=== PATIENT | male | born 1955 | race Caucasian/White ===

== ENCOUNTER → 2018-01-14 | Outpatient (CLI) | payer OTHER | LOC: CIMAGING 09:02 | PROVIDERS: ATTEND Family Medicine | DX: R10.11 Right upper quadrant pain (principal); R94.8 Abnormal results of function studies of other organs and systems; K76.89 Other specified diseases of liver | CPT/HCPCS: 76700-PO ==

== ENCOUNTER 2018-01-16 09:44 | Observation (INO) | payer OTHER ==
[2018-01-16] MEDS ORDERED: ONDANSETRON 4 MG/2 ML VIAL IVP ONE (10:10)
[2018-01-16] MEDS ORDERED: NS 1,000 ML IV ONE (10:10)
--- NOTE | 2018-01-16 10:20 | EDPHY ---
H & P Time Seen by Provider: 01/16/18 09:52 HPI/ROS: CHIEF COMPLAINT: Abdominal pain HISTORY OF PRESENT ILLNESS: Pain for more than 1 less than 2 weeks, worsening today. Recent normal urinalysis, lipase 500, ultrasound performed. Pain is on the right side. Does not radiate. Associated with nausea and not really any change with eating or drinking. No urinary symptoms or fever. Symptoms were mild today as moderate comes to the ER for further evaluation. Plan by the primary care physician Dr. Mushtaq caputo was for CT scanning. REVIEW OF SYSTEMS: Eye: no change in vision ENT: no sore throat Cardiac: no chest pain or syncope Pulmonary: no cough or SOB Abdomen: HPI Musculoskeletal: no back pain Skin: no rash Neuro: no headache Constitutional: no fever : no urinary symptoms A comprehensive 10 point review of systems is otherwise negative aside from elements mentioned in the history of present illness. PAST MEDICAL HISTORY: Negative, no previous abdominal surgeries Social history: No alcohol General Appearance: Alert and conversant, cooperative. Eyes: No scleral icterus. ENT, Mouth: Normal mucous membranes. Respiratory: Normal respiratory effort, breath sounds equal, lungs are clear to auscultation. Cardiovascular: Regular rate and rhythm. Gastrointestinal: Right-sided abdominal tenderness but no Zhou sign and no definite McBurney's point tenderness. Bowel sounds present. Neurological: Alert, face symmetric, normal motor and sensory in extremities. Skin: Warm and dry, no rashes. Musculoskeletal: No peripheral edema. Psychiatric: Not agitated. Emergency Department course/MDM: Plan for repeat labs to include lipase, CT scanning. Zofran 4 mg IV for nausea 1046: Lipase greater than 1200, no gallstones on ultrasound. Admission to hospitalist service. 1134: negative CT except for liver cysts. No CT evidence of pancreatitis. Smoking Status: Never smoked Constitutional: Initial Vital Signs Temperature (C) 36.5 C 01/16/18 09:46 Heart Rate 75 01/16/18 09:46 Respiratory Rate 18 01/16/18 09:46 Blood Pressure 140/81 H 01/16/18 09:46 O2 Sat (%) 96 01/16/18 09:46 O2 Delivery Mode Room Air Allergies/Adverse Reactions: No Known Allergies Allergy (Verified 01/16/18 11:05) Home Medications: Medication Instructions Recorded Acetaminophen [Tylenol 325mg (*)] 325 mg PO DAILY PRN 01/16/18 Atorvastatin Calcium [Lipitor 10 10 mg PO DAILY 01/16/18 mg (*)] Cholecalciferol Vit D3 [Vitamin D3 1,000 units PO DAILY 01/16/18 (*)] Herbals/Supplements -Info Only 1 ea PO DAILY 01/16/18 [place]-3 Fatty Acids [Fish Oil 1000 1,000 mg PO DAILY 01/16/18 mg (*)] Timolol 0.5% [TIMOPTIC 0.5% (*)] 1 drops EACHEYE DAILY 01/16/18 Medical Decision Making Consult/Admit Bed Type: [facility] c[facility] - Data Points Laboratory Results: Laboratory Results 01/16/18 10:10 01/16/18 10:10 01/16/18 01/16/18 01/16/18 10:17 10:10 10:10 WBC 6.32 10^3/uL 10^3/uL (3.80-9.50) RBC 5.38 10^6/uL 10^6/uL (4.40-6.38) Hgb 16.9 g/dL g/dL (13.7-17.5) POC Hgb 17.3 gm/dL gm/dL (13.7-17.5) Hct 50.3 % % (40.0-51.0) POC Hct 51 % % (40-51) MCV 93.5 fL fL (81.5-99.8) MCH 31.4 pg pg (27.9-34.1) MCHC 33.6 g/dL g/dL (32.4-36.7) RDW 12.1 % % (11.5-15.2) Plt Count 215 10^3/uL 10^3/uL (150-400) MPV 9.9 fL fL (8.7-11.7) Neut % (Auto) 63.6 % % (39.3-74.2) Lymph % (Auto) 27.2 % % (15.0-45.0) [place] % (Auto) 7.3 % % (4.5-13.0) Eos % (Auto) 1.3 % % (0.6-7.6) Baso % (Auto) 0.3 % % (0.3-1.7) Nucleat RBC Rel Count 0.0 % % (0.0-0.2) Absolute Neuts (auto) 4.02 10^3/uL 10^3/uL (1.70-6.50) Absolute Lymphs (auto) 1.72 10^3/uL 10^3/uL (1.00-3.00) Absolute Monos (auto) 0.46 10^3/uL 10^3/uL (0.30-0.80) Absolute Eos (auto) 0.08 10^3/uL 10^3/uL (0.03-0.40) Absolute Basos (auto) 0.02 10^3/uL 10^3/uL (0.02-0.10) Absolute Nucleated RBC 0.00 10^3/uL 10^3/uL (0-0.01) Immature Gran % 0.3 % % (0.0-1.1) Immature Gran # 0.02 10^3/uL 10^3/uL (0.00-0.10) POC Sodium 144 mEq/L mEq/L (135-145) Sodium 141 mEq/L mEq/L (135-145) POC Potassium 4.1 mEq/L mEq/L (3.3-5.0) Potassium 4.3 mEq/L mEq/L (3.3-5.0) POC Chloride 105 mEq/L mEq/L (97-110) Chloride 106 mEq/L mEq/L (97-110) Carbon Dioxide 28 mEq/l mEq/l (22-31) Anion Gap 7 mEq/L mEq/L (6-14) POC BUN 12 mg/dL mg/dL (7-23) BUN 13 mg/dL mg/dL (7-23) Creatinine 0.8 mg/dL mg/dL (0.7-1.3) POC Creatinine 0.8 mg/dL mg/dL (0.7-1.3) Estimated GFR > 60 Glucose 102 mg/dL H mg/dL (70-100) POC Glucose 104 mg/dL H mg/dL (70-100) Calcium 9.3 mg/dL mg/dL (8.5-10.4) Total Bilirubin 1.0 mg/dL mg/dL (0.1-1.4) Conjugated Bilirubin 0.1 mg/dL mg/dL (0.0-0.5) Unconjugated Bilirubin 0.9 mg/dL mg/dL (0.0-1.1) AST 27 IU/L IU/L (17-59) ALT 32 IU/L IU/L (21-72) Alkaline Phosphatase 73 IU/L IU/L (38-126) Total Protein 7.1 g/dL g/dL (6.3-8.2) Albumin 4.2 g/dL g/dL (3.5-5.0) Lipase 1254 IU/L H IU/L (23-300) Medications Given: Discontinued Medications Sodium Chloride (Ns) 1,000 mls @ 0 mls/hr IV EDNOW ONE; Wide Open PRN Reason: Protocol Stop: 01/16/18 10:11 Last Admin: 01/16/18 10:19 Dose: 1,000 mls Ondansetron HCl (Zofran) 4 mg IVP EDNOW ONE Stop: 01/16/18 10:11 Last Admin: 01/16/18 10:19 Dose: 4 mg Point of Care Test Results: Chemistry 01/16/18 10:17 POC Sodium 144 mEq/L mEq/L (135-145) POC Potassium 4.1 mEq/L mEq/L (3.3-5.0) POC Chloride 105 mEq/L mEq/L (97-110) POC BUN 12 mg/dL mg/dL (7-23) POC Creatinine 0.8 mg/dL mg/dL (0.7-1.3) POC Glucose 104 mg/dL H mg/dL (70-100) ISTAT H&H 01/16/18 10:17 POC Hgb 17.3 gm/dL gm/dL (13.7-17.5) POC Hct 51 % % (40-51) Departure - Departure Disposition: [facility] Inpatient Acute Clinical Impression: Pancreatitis, acute Condition: Good
[2018-01-16 10:24] LABS: PLATELET COUNT 215 10^3/uL (150-400)
[2018-01-16] MEDS ORDERED: IOPAMIDOL (ISOVUE-300) 100 ML BTL ONE (10:57)
[2018-01-16] MEDS ORDERED: ONDANSETRON 4 MG/2 ML VIAL IVP PRN (11:29)
[2018-01-16] MEDS ORDERED: NS W/ 20 KCl/L 1,000 ML IV SCH (11:30)
[2018-01-16] MEDS ORDERED: oxyCODONE IR 5 MG TAB PO PRN (13:08)
[2018-01-16] MEDS ORDERED: HYDROmorphONE/DILAUDID 1 MG/ML INJ IVP PRN (13:08)
[2018-01-16] MEDS ORDERED: NS 1,000 ML IV SCH (13:15)
--- NOTE | 2018-01-16 14:04 | PDGENHP ---
History and Physical - Chief Complaint RUQ pain, nausea - History of Present Illness 62 y/o male c/o RUQ pain and nausea for the past 2 weeks. He increased the amount of weight lifting exercises and he initially thought the abdominal pain was more musculoskeletal. Denies diarrhea, vomiting, dysuria, alcohol abuse, fevers, chills. RUQ pain is 5/[address] Abdomen w/ contrast: No acute process in the abdomen and pelvis - no evidence of acute pancreatitis. Incidental hepatic cysts and moderate-sized left hydrocele. Past Medical/Surgical History 1. Tonsillectomy 2. Vasectomy () 3. Low levels of HDL Vital Signs: 128/68 68 HR 18 Respirations 94% RA 36.5C Temp History Information - Allergies/Home Medication List Allergies/Adverse Reactions: No Known Allergies Allergy (Verified 01/16/18 11:05) Home Medications: Acetaminophen [Tylenol 325mg (*)] 325 mg PO DAILY PRN 01/16/18 [Last Taken Unknown] Atorvastatin Calcium [Lipitor 10 mg (*)] 10 mg PO DAILY 01/16/18 [Last Taken ] Cholecalciferol Vit D3 [Vitamin D3 (*)] 1,000 units PO DAILY 01/16/18 [Last Taken Unknown] Herbals/Supplements -Info Only 1 ea PO DAILY 01/16/18 [Last Taken Unknown] [place]-3 Fatty Acids [Fish Oil 1000 mg (*)] 1,000 mg PO DAILY 01/16/18 [Last Taken Unknown] Timolol 0.5% [TIMOPTIC 0.5% (*)] 1 drops EACHEYE DAILY 01/16/18 [Last Taken ] I have personally reviewed and updated: family history, medical history, social history, surgical history Past Medical History: See HPI list - Surgical History Additional surgical history: See HPI list - Family History Additional family history: Mother-cholecystectomy - Social History Smoking Status: Never smoked Alcohol Use: Rarely (Only on special occasions (holidays)) Drug Use: None Additional social history: Lives in [place] with his spouse Leilani. Review of Systems Review of Systems: ROS: 10pt was reviewed & negative except for what was stated in HPI & below Constitutional: Reports: malaise EENMT: Reports: no symptoms Cardiac: Reports: no symptoms Respiratory: Reports: no symptoms Gastrointestinal: Reports: abdominal pain (RUQ), nausea Genitourinary: Reports: no symptoms Muscolosketal: Reports: no symptoms Skin: Reports: no symptoms Neurological: Reports: no symptoms Hematologic/Lymphatic: Reports: no symptoms Immunologic/Allergy: Reports: no symptoms Physical Exam Physical Exam: Lab data and imaging reviewed CT Abdomen w/ contrast: No acute process in the abdomen and pelvis - no evidence of acute pancreatitis. Incidental hepatic cysts and moderate-sized left hydrocele. Abdomen US (01/14/18): Normal appearance of the gallbladder with no evidence of cholelithiasis, cholecystitis or bile duct dilatation. Visualizing the pancreas suboptimal and recommended for CT w/contrast if suspicious of acute pancreatitis. Lipase (01/14/18): 500 Lipase: 1254 Temp Pulse Resp BP Pulse Ox 36.5 C 76 14 128/75 H 95 01/16/18 09:46 01/16/18 13:49 01/16/18 13:49 01/16/18 13:49 01/16/18 13:49 Constitutional: no apparent distress, appears nourished, other (He does not appear to be in a great deal of pain. He reports the pain and nausea is tolerable right now. He is able to converse in a calm, pleasant manner.) Eyes: PERRL, anicteric sclera, EOMI Ears, Nose, Mouth, Throat: moist mucous membranes, hearing normal, ears appear normal, no oral mucosal ulcers Cardiovascular: regular rate and rhythym, no murmur, rub, or gallop, No edema Peripheral Pulses: 2+: dorsalis-pedis (R) (Radial 2+), dorsalis-pedis (L) ( Radial 2+) Respiratory: no respiratory distress, no rales or rhonchi, clear to auscultation Gastrointestinal: normoactive bowel sounds, no palpable masses, tenderness Genitourinary: no bladder fullness, no bladder tenderness Skin: warm, normal color, no rashes or abrasions, no fluctuance, no induration, No mottled Musculoskeletal: full muscle strength, no muscle tenderness, normal joint ROM, no joint effusions Neurologic: AAOx3, sensation intact bilaterally, CN II-XII Intact Psychiatric: interacting appropriately, not anxious, not encephalopathic, thought process linear Lymph, Heme, Immunologic: no cervical LAD, no supraclavicular LAD Lab Data & Imaging Review 01/16/18 10:10 01/16/18 10:10 WBC 6.32 10^3/uL (3.80-9.50) 01/16/18 10:10 RBC 5.38 10^6/uL (4.40-6.38) 01/16/18 10:10 Hgb 16.9 g/dL (13.7-17.5) 01/16/18 10:10 POC Hgb 17.3 gm/dL (13.7-17.5) 01/16/18 10:17 Hct 50.3 % (40.0-51.0) 01/16/18 10:10 POC Hct 51 % (40-51) 01/16/18 10:17 MCV 93.5 fL (81.5-99.8) 01/16/18 10:10 MCH 31.4 pg (27.9-34.1) 01/16/18 10:10 MCHC 33.6 g/dL (32.4-36.7) 01/16/18 10:10 RDW 12.1 % (11.5-15.2) 01/16/18 10:10 Plt Count 215 10^3/uL (150-400) 01/16/18 10:10 MPV 9.9 fL (8.7-11.7) 01/16/18 10:10 Neut % (Auto) 63.6 % (39.3-74.2) 01/16/18 10:10 Lymph % (Auto) 27.2 % (15.0-45.0) 01/16/18 10:10 [place] % (Auto) 7.3 % (4.5-13.0) 01/16/18 10:10 Eos % (Auto) 1.3 % (0.6-7.6) 01/16/18 10:10 Baso % (Auto) 0.3 % (0.3-1.7) 01/16/18 10:10 Nucleat RBC Rel Count 0.0 % (0.0-0.2) 01/16/18 10:10 Absolute Neuts (auto) 4.02 10^3/uL (1.70-6.50) 01/16/18 10:10 Absolute Lymphs (auto) 1.72 10^3/uL (1.00-3.00) 01/16/18 10:10 Absolute Monos (auto) 0.46 10^3/uL (0.30-0.80) 01/16/18 10:10 Absolute Eos (auto) 0.08 10^3/uL (0.03-0.40) 01/16/18 10:10 Absolute Basos (auto) 0.02 10^3/uL (0.02-0.10) 01/16/18 10:10 Absolute Nucleated RBC 0.00 10^3/uL (0-0.01) 01/16/18 10:10 Immature Gran % 0.3 % (0.0-1.1) 01/16/18 10:10 Immature Gran # 0.02 10^3/uL (0.00-0.10) 01/16/18 10:10 POC Sodium 144 mEq/L (135-145) 01/16/18 10:17 Sodium 141 mEq/L (135-145) 01/16/18 10:10 POC Potassium 4.1 mEq/L (3.3-5.0) 01/16/18 10:17 Potassium 4.3 mEq/L (3.3-5.0) 01/16/18 10:10 POC Chloride 105 mEq/L (97-110) 01/16/18 10:17 Chloride 106 mEq/L (97-110) 01/16/18 10:10 Carbon Dioxide 28 mEq/l (22-31) 01/16/18 10:10 Anion Gap 7 mEq/L (6-14) 01/16/18 10:10 POC BUN 12 mg/dL (7-23) 01/16/18 10:17 BUN 13 mg/dL (7-23) 01/16/18 10:10 Creatinine 0.8 mg/dL (0.7-1.3) 01/16/18 10:10 POC Creatinine 0.8 mg/dL (0.7-1.3) 01/16/18 10:17 Estimated GFR > 60 01/16/18 10:10 Glucose 102 mg/dL (70-100) H 01/16/18 10:10 POC Glucose 104 mg/dL (70-100) H 01/16/18 10:17 Calcium 9.3 mg/dL (8.5-10.4) 01/16/18 10:10 Total Bilirubin 1.0 mg/dL (0.1-1.4) 01/16/18 10:10 Conjugated Bilirubin 0.1 mg/dL (0.0-0.5) 01/16/18 10:10 Unconjugated Bilirubin 0.9 mg/dL (0.0-1.1) 01/16/18 10:10 AST 27 IU/L (17-59) 01/16/18 10:10 ALT 32 IU/L (21-72) 01/16/18 10:10 Alkaline Phosphatase 73 IU/L (38-126) 01/16/18 10:10 Total Protein 7.1 g/dL (6.3-8.2) 01/16/18 10:10 Albumin 4.2 g/dL (3.5-5.0) 01/16/18 10:10 Lipase 1254 IU/L (23-300) H 01/16/18 10:10 Assessment & Plan Plan: 62 y/o male presenting with vague abdominal pain and nausea for 2 weeks with no vomiting or diarrhea. Lipase is 1254. Imaging shows normal gallbladder and cannot appreciate acute pancreatitis. He rarely drinks alcohol and he is not a smoker. Differential diagnoses: gastroenteritis, pancreatitis 1. Abdominal pain: considering his lipase is elevated and symptomatic, acute pancreatitis is suspected versus gastroenteritis. Afebrile. No vomiting/ diarrhea. The origin of his pancreatitis is unknown. Lipid panel ordered. We will treat him conservatively with IVF and NPO. He may transition to clears as tolerated. IV/PO pain medications. CT imaging also showed hepatic cysts. Although his liver enzymes are not elevated, hepatitis panel ordered. He may need to f/u outpatient re: cysts. 2. Nausea: PRN anti-emetics Diet: NPO for now, may transition to clears when tolerated VTE ppx: Lovenox Code: Full Dispo: Admit to obs
[2018-01-16] MEDS: NS 1,000 ML IV SCH ×2 (14:31→20:37)
--- NOTE | 2018-01-16 15:51 | HOSPPROG ---
Hospitalist Progress Note Assessment/Plan: I have personally seen and examined this patient, I agree with the current assessment and plan outlined by Nidhi WISE. Objective: Vital Signs Temp Pulse Resp BP Pulse Ox 37.3 C 76 16 131/82 H 97 01/16/18 14:18 01/16/18 14:18 01/16/18 14:18 01/16/18 14:18 01/16/18 14:18 01/15/18 01/16/18 01/17/18 05:59 05:59 05:59 Intake Total 1000 Balance 1000 ICD10 Worksheet Patient Problems: Problems Problem Status Onset Pancreatitis, acute Acute
[2018-01-16] MEDS: ACETAMINOPHEN 325 MG TAB PO PRN (16:42)
[2018-01-16] MEDS: ONDANSETRON DISINTEGRATING 4 MG TAB PO PRN (19:01)
[2018-01-16 20:10] LABS: HEPATITIS B SURFACE ANTIGEN NEGATIVE (NEGATIVE)
[2018-01-16 20:14] LABS: HEPATITIS A ANTIBODY IGM (BCH) NEGATIVE (NEGATIVE); HEPATITIS B CORE AB IGM NEGATIVE (NEGATIVE)
[2018-01-16 20:26] LABS: HEPATITIS C ANTIBODY TOTAL NEGATIVE (NEGATIVE)
[2018-01-17] MEDS: NS 1,000 ML IV SCH (03:15)
[2018-01-17] MEDS: ACETAMINOPHEN 325 MG TAB PO PRN (03:59)
[2018-01-17] MEDS: ONDANSETRON DISINTEGRATING 4 MG TAB PO PRN (05:49)
[2018-01-17 07:36] VITALS: BP 143/78
[2018-01-17] MEDS ORDERED: ENOXAPARIN 40 MG/0.4 ML SYR SC SCH (09:00)
[2018-01-17] MEDS ORDERED: Herbals/Supplements -Info Only PO SCH (09:00)
[2018-01-17] MEDS ORDERED: ATORVASTATIN CALCIUM 10 MG TAB PO SCH (09:00)
[2018-01-17] MEDS ORDERED: OMEGA-3 FATTY ACIDS 1,000 MG CAP PO SCH (09:00)
[2018-01-17] MEDS ORDERED: CHOLECALCIFEROL VIT D3 1,000 UNITS TAB PO SCH (09:00)
[2018-01-17] MEDS ORDERED: TIMOLOL 0.5% 15 ML OPHT.BTL EACHEYE SCH (09:00)
--- NOTE | 2018-01-17 12:49 | PDDCSUM ---
Discharge Summary Discharge Summary: Date of Admission: 01/16/2018 Date of Discharge: 01/17/2018 Consults: N/A Procedure: Abdominal CT F/u: PCP, CT showing Hepatic cysts, repeat imaging in 3-6 months Hospital Course Problem List: 62 y/o male presentedwith vague abdominal pain and nausea for 2 weeks with no vomiting or diarrhea. Lipase 1254 on admission. Imaging shows normal gallbladder and cannot appreciate acute pancreatitis. He rarely drinks alcohol and he is not a smoker. 1. Abdominal pain: considering his lipase is elevated and symptomatic, acute pancreatitis is suspected versus gastroenteritis. Afebrile. No vomiting/ diarrhea. The origin of his pancreatitis is unknown. Lipid panel WNL. We will treat him conservatively with IVF and NPO. He may transition to clears as tolerated. IV/PO pain medications. 2. Hepatic Cysts: CT imaging also showed 6x7 cm hepatic cyst in R lobe, and multiple smaller cysts. Although his liver enzymes are not elevated, hepatitis panel ordered and negative. He may need to f/u outpatient with PCP for followup imaging as indicated. = 3. Nausea: PRN anti-emetics, will discharge on Zofran Time spent on discharge was >35 minutes with >50% of time spent on patient education and counseling.
== END 2018-01-17 12:30 | disposition home or self-care (01) ==
LOC: INTOOBSV 10:53 → F3E 13:54
PROVIDERS: ADMIT Internal Medicine; ATTEND Internal Medicine
DX: R10.11 Right upper quadrant pain (principal); R74.8 Abnormal levels of other serum enzymes; K76.89 Other specified diseases of liver; R11.0 Nausea; E86.9 Volume depletion, unspecified
CPT/HCPCS: 74177; 96372; 96374; 99285; G0378; 82435-PO; 82565-PO; 82947-PO; 84132-PO; 84295-PO; 84520-PO; 85014-PO; G0472; J1650; J2405; Q9967

== ENCOUNTER → 2018-04-02 | Outpatient (CLI) | payer OTHER ==
[~2018-04-02] MED LIST: GADOBUTROL 10 ML VIAL IVP ONE
== END ==
LOC: FIMAGING 12:20
PROVIDERS: ATTEND Physician Assistant
DX: R10.9 Unspecified abdominal pain (principal); K76.89 Other specified diseases of liver
CPT/HCPCS: A9585